=== PATIENT | male | born 1960 | race Caucasian/White ===

== ENCOUNTER → 2016-07-22 | Outpatient (CLI) | payer MEDICARE | LOC: RAD 09:41 | PROVIDERS: ATTEND Internal Medicine | DX: C20 Malignant neoplasm of rectum (principal) | CPT/HCPCS: 71260; 74177 ==

== ENCOUNTER 2017-04-21 15:26 | Day surgery (SDC) | payer MEDICARE ==
[2017-04-21] MEDS ORDERED: NALOXONE HCL INJ/PF 0.4 MG/1 ML SDV ONE (16:43)
[2017-04-21] MEDS ORDERED: EPINEPHRINE INJ 1 MG/10 ML DISP.SYRIN ONE (16:44)
[2017-04-21] MEDS ORDERED: FENTANYL CITRATE INJ/PF 100 MCG/2 ML AMPUL ONE (16:44)
[2017-04-21] MEDS ORDERED: MIDAZOLAM 2 MG/2 ML INJ ONE ×2 (16:44→16:51)
[2017-04-21] MEDS ORDERED: GLUCAGON,HUMAN RECOMB 1 MG INJ ONE ×2 (16:44→16:52)
[2017-04-21] MEDS ORDERED: FLUMAZENIL INJ 0.5 MG/5 ML VIAL ONE (16:44)
--- NOTE | 2017-04-21 18:28 | Operative Report ---
Operative Report DATE OF SURGERY: 04/21/17 Operative Report: Pre-op diagnosis: History of rectal cancer status post APR Post-op diagnosis: Sigmoid polyp Surgery: Colonoscopy through the stoma with biopsy Medications: Versed 3mg, Fentanyl 100mcg IV push Tissue removed: Colon polyp for pathology Procedure: After informed consent obtained from patient, conscious sedation was achieved. The colonoscope was then inserted into the colostomy stoma and advanced to the cecum. The appendiceal orifice and the terminal ileum were both identified. The mucosa was examined into details as the colonoscope was slowly pulled out of the patient. Patient tolerated the procedure well. Findings Cecum: Normal Ascending colon: Normal Transverse colon: Normal Descending colon: Normal Sigmoid colon: Proximal sigmoid showed a small polyp removed with a forceps Rectum: No rectum Plan: Repeat colonoscopy in 1-2 years OPERATION: .
[2017-04-21 19:24] VITALS: BP 132/80
== END 2017-04-21 19:20 | disposition home or self-care (01) ==
LOC: END 15:26
PROVIDERS: ATTEND Internal Medicine Gastroenterology
PROC: 0DBN8ZX Excision of Sigmoid Colon, Via Natural or Artificial Opening Endoscopic, Diagnostic (ICD-10-PCS; principal; 2017-04-21 17:43)
DX: Z12.11 Encounter for screening for malignant neoplasm of colon (principal); D12.5 Benign neoplasm of sigmoid colon; Z85.038 Personal history of other malignant neoplasm of large intestine; Z90.49 Acquired absence of other specified parts of digestive tract
CPT/HCPCS: 44389; 88305 ×2; J2250; J3010; J0171; J1610; J2310; J3490

== ENCOUNTER → 2017-04-27 | Outpatient (CLI) | payer MEDICARE, OTHER ==
--- NOTE | 2017-04-27 15:33 | RADIOLOGY REPORT (SQ) ---
EXAM DESCRIPTION: CT CHEST WITH COMPLETED DATE/TIME: 04/27/2017 9:05 am REASON FOR STUDY: RECTAL CA (C20) C20 MALIGNANT NEOPLASM OF RECTUM COMPARISON: 07/22/2016, 03/12/2016, and 04/20/2015. TECHNIQUE: CT scan of the chest performed using helical scanning technique with dynamic intravenous contrast injection. Images reviewed with lung, soft tissue and bone windows. Reconstructed coronal and sagittal MPR images reviewed. All images stored on PACS. All CT scanners at this facility use dose modulation, iterative reconstruction, and/or weight based d osing when appropriate to reduce radiation dose to as low as reasonably achievable (ALARA). [facility]: Dose Right [facility]: CareDose [facility]: Dose Right [facility]: Teradose 4D [facility]: [employer] CONTRAST TYPE AND DOSE: contrast/concentration: Isovue 370.00 mg/ml; Total Contrast Delivered: 71.0 ml; Total Saline Delivered: 66.0 ml RENAL FUNCTION: Creatinine 1.0. RADIATION DOSE: . LIMITATIONS: None. FINDINGS: LUNGS AND PLEURA: Emphysematous changes. New spiculated lesion in the right upper lobe me asuring 7 - 8 mm (series 6, image 33). No other nodules or masses. Small calcified granuloma in the left lung. No pneumothorax. No effusions. HILAR AND MEDIASTINAL STRUCTURES: No identified masses or abnormal nodes. HEART AND VASCULAR STRUCTURES: No aneurysm or dissection. No central pulmonary emboli. No pericardi al effusion. HARDWARE: None in the chest. UPPER ABDOMEN: No significant findings. Limited exam. THYROID AND OTHER SOFT TISSUES: No masses. No adenopathy. BONES: No significant finding. OTHER: No other significant finding. IMPRESSION: CHRONIC EMPHYSEMATOUS CHANGES. NEW 7-8 MM SPICULATED LESION IN THE RIGHT UPPER LOBE. I N THE SETTING OF UNDERLYING CHRONIC LUNG DISEASE, THIS COULD REPRESENT AN AREA OF DEVELOPING SCAR. H OWEVER, WITH THE HISTORY OF PRIOR MALIGNANCY, A SMALL METASTATIC LESION IS ANOTHER POSSIBILITY. ALEX MMEND FOLLOW-UP PET-CT FOR FURTHER EVALUATION. TECHNICAL DOCUMENTATION: JOB ID: [id number] Quality ID # [id number]: Final reports with documentation of one or more dose reduction techniques (e.g., Au tomated exposure control, adjustment of the mA and/or kV according to patient size, use of iterative reconstruction technique) 2010 [employer]- All Rights Reserved
--- NOTE | 2017-04-27 15:40 | RADIOLOGY REPORT (SQ) ---
EXAM DESCRIPTION: CT ABD/PELVIS WITH IV ORAL COMPLETED DATE/TIME: 04/27/2017 9:08 am REASON FOR STUDY: RECTAL CA (C20) C20 MALIGNANT NEOPLASM OF RECTUM COMPARISON: 07/22/2016, 03/12/2016, and 11/28/2015. TECHNIQUE: CT scan of the abdomen and pelvis performed with intravenous and oral contrast using soraya evelia scanning technique with dynamic intravenous contrast injection. Images reviewed with lung, soft t issue, and bone windows. Reconstructed coronal and sagittal MPR images reviewed. Delayed images for e valuation of the urinary system also acquired. All images stored on PACS. All CT scanners at this facility use dose modulation, iterative reconstruction, and/or weight based d osing when appropriate to reduce radiation dose to as low as reasonably achievable (ALARA). [facility]: Dose Right [facility]: CareDose [facility]: Dose Right [facility]: Teradose 4D [facility]: [employer] CONTRAST TYPE AND DOSE: 71 mL Isovue 370- low osmolar. RENAL FUNCTION: Creatinine 1.0. RADIATION DOSE: CT Rad equipment meets quality standard of care and radiation dose reduction techniq ues were employed. CTDIvol: 4.5 - 4.9 mGy. DLP: 662 mGy-cm.. LIMITATIONS: None. FINDINGS: LOWER CHEST: No significant findings. No nodules or infiltrates. LIVER: Normal size. No masses. No dilated ducts. SPLEEN: Normal size. No focal lesions. PANCREAS: No masses. No significant calcifications. No adjacent inflammation or peripancreatic fluid collections. Pancreatic duct not dilated. GALLBLADDER: No identified stones by CT criteria. No inflammatory changes to suggest cholecystitis. ADRENAL GLANDS: No significant masses or asymmetry. RIGHT KIDNEY AND URETER: No solid masses. No significant calcification. No hydronephrosis or hydroure ter. LEFT KIDNEY AND URETER: No solid masses. No significant calcification. No hydronephrosis or hydrouret er. AORTA AND VESSELS: No aneurysm. No dissection. Renal arteries, SMA, celiac without stenosis. RETROPERITONEUM: No retroperitoneal adenopathy, hemorrhage or masses. BOWEL AND PERITONEAL CAVITY: Stable surgical changes. Previous resection of the rectosigmoid with le ft lower quadrant diverting colostomy. No obstruction. No visualized masses. No free fluid. No infl ammatory changes or thickening of bowel wall. APPENDIX: Normal. PELVIS: No significant masses. A few loops of small bowel have prolapse into the surgical site in th e rectum. Normal bladder. No free fluid. ABDOMINAL WALL: No masses. No hernias. BONES: No significant or acute findings. OTHER: No other significant finding. IMPRESSION: STABLE SURGICAL CHANGES. NO EVIDENCE OF RESIDUAL OR RECURRENT DISEASE IN THE SURGICAL S ITE AND NO EVIDENCE OF METASTATIC DISEASE IN THE ABDOMEN OR PELVIS. NO OTHER SIGNIFICANT FINDINGS. TECHNICAL DOCUMENTATION: JOB ID: [id number] Quality ID # [id number]: Final reports with documentation of one or more dose reduction techniques (e.g., Au tomated exposure control, adjustment of the mA and/or kV according to patient size, use of iterative reconstruction technique) 2010 [employer]- All Rights Reserved
== END ==
LOC: RAD 08:25
PROVIDERS: ATTEND Internal Medicine
DX: C20 Malignant neoplasm of rectum (principal); J43.9 Emphysema, unspecified
CPT/HCPCS: 71260; 74177; 82565

== ENCOUNTER → 2017-07-28 | Outpatient (CLI) | payer MEDICARE, OTHER ==
--- NOTE | 2017-07-28 09:31 | RADIOLOGY REPORT (SQ) ---
EXAM DESCRIPTION: CT CHEST WITHOUT COMPLETED DATE/TIME: 07/28/2017 7:53 am REASON FOR STUDY: RECTAL CANCER C20 MALIGNANT NEOPLASM OF RECTUM COMPARISON: PET-CT 12/09/2015 CT chest 03/12/2016, 07/22/2016, 04/27/2017 TECHNIQUE: CT scan performed of the chest without intravenous contrast. Images reviewed with lung, soft tissue and bone windows. Reconstructed coronal and sagittal MPR images reviewed. All images st ored on PACS. All CT scanners at this facility use dose modulation, iterative reconstruction, and/or weight based d osing when appropriate to reduce radiation dose to as low as reasonably achievable (ALARA). [facility]: Dose Right [facility]: CareDose [facility]: Dose Right [facility]: Teradose 4D [facility]: [employer] RADIATION DOSE: 8 mGy. LIMITATIONS: No technical limitations. FINDINGS: LUNGS AND PLEURA: End-stage appearance of obstructive lung disease with enlarged centrilob ular airspaces. On axial image 39, there is a 5 to 6 mm spiculated nodule in the upper lobe. This is slightly smalle r than on 04/27/2017 but new compared to 07/22/2016. No pleural effusions. No pneumothorax. Airways are patent. HILAR AND MEDIASTINAL STRUCTURES: No identified masses or abnormal nodes. No obvious aneurysm. HEART AND VASCULAR STRUCTURES: Normal cardiac size. Stable ascending aorta ectasia compared to 2016, on the current study the ascending aorta is 3.8 cm. No pericardial effusion. UPPER ABDOMEN: No significant findings. Limited exam. THYROID AND OTHER SOFT TISSUES: No masses. No adenopathy. BONES: No significant finding. HARDWARE: None in the chest. OTHER: No other significant findings. IMPRESSION: Slight decrease in size of subcentimeter spiculated nodule in the right upper lobe axial image 39. Advanced obstructive lung disease. TECHNICAL DOCUMENTATION: JOB ID: [id number] Quality ID # 436: Final reports with documentation of one or more dose reduction techniques (e.g., Au tomated exposure control, adjustment of the mA and/or kV according to patient size, use of iterative reconstruction technique) 2010 [employer]- All Rights Reserved Reading location - IP/workstation name: [email or web address]
== END ==
LOC: RAD 07:42
PROVIDERS: ATTEND Internal Medicine
DX: C20 Malignant neoplasm of rectum (principal)
CPT/HCPCS: 71250

== ENCOUNTER → 2018-01-28 | Outpatient (CLI) | payer MEDICARE ==
--- NOTE | 2018-01-28 09:22 | RADIOLOGY REPORT (SQ) ---
EXAM DESCRIPTION: CT CHEST WITHOUT COMPLETED DATE/TIME: 01/28/2018 8:20 am REASON FOR STUDY: RECTAL CA (C20) C20 MALIGNANT NEOPLASM OF RECTUM COMPARISON: PET-CT 12/09/2015 CT chest 04/20/2015, 07/22/2016, 04/27/2017, 07/28/2017 TECHNIQUE: CT scan performed of the chest without intravenous contrast. Images reviewed with lung, soft tissue and bone windows. Reconstructed coronal and sagittal MPR images reviewed. All images st ored on PACS. All CT scanners at this facility use dose modulation, iterative reconstruction, and/or weight based d osing when appropriate to reduce radiation dose to as low as reasonably achievable (ALARA). [facility]: Dose Right [facility]: CareDose [facility]: Dose Right [facility]: Teradose 4D [facility]: [employer] RADIATION DOSE: CT Rad equipment meets quality standard of care and radiation dose reduction techniq ues were employed. CTDIvol: 5.1 mGy. DLP: 252 mGy-cm. mGy. LIMITATIONS: No technical limitations. FINDINGS: LUNGS AND PLEURA: Subcentimeter scar in the periphery of the right upper lobe axial images 37 and 38. This is smaller than on 04/27/2017 and stable compared to 07/28/2017. Remainder of the lungs exhibit advanced obstructive lung disease with centrilobular emphysema and sta ble bandlike scarring superior segment right lower lobe. No acute infiltrates. No pleural effusion. No pneumothorax. No worrisome pulmonary nodules. HILAR AND MEDIASTINAL STRUCTURES: No identified masses or abnormal nodes. No obvious aneurysm. HEART AND VASCULAR STRUCTURES: No aneurysm. No pericardial effusion. UPPER ABDOMEN: No significant findings. Limited exam. THYROID AND OTHER SOFT TISSUES: No masses. No adenopathy. BONES: No significant finding. HARDWARE: None in the chest. OTHER: No other significant findings. IMPRESSION: Obstructive lung disease. Stable subcentimeter scar in the periphery of the right upper lobe. TECHNICAL DOCUMENTATION: JOB ID: [id number] Quality ID # 436: Final reports with documentation of one or more dose reduction techniques (e.g., Au tomated exposure control, adjustment of the mA and/or kV according to patient size, use of iterative reconstruction technique) 2010 [employer]- All Rights Reserved Reading location - IP/workstation name: [email or web address]
== END ==
LOC: RAD 08:07
PROVIDERS: ATTEND Internal Medicine
DX: C20 Malignant neoplasm of rectum (principal)
CPT/HCPCS: 71250

== ENCOUNTER 2018-07-20 15:32 | Day surgery (SDC) | payer MEDICARE ==
[~2018-07-20 15:32] MED LIST: DIPHENHYDRAMINE HCL 50 MG/ML VIAL ONE; EPINEPHRINE INJ 1 MG/10 ML DISP.SYRIN ONE; FENTANYL CITRATE INJ/PF 100 MCG/2 ML AMPUL ONE; FLUMAZENIL INJ 0.5 MG/5 ML VIAL ONE; GLUCAGON,HUMAN RECOMB 1 MG INJ ONE; MIDAZOLAM 2 MG/2 ML INJ ONE; NALOXONE HCL INJ/PF 0.4 MG/1 ML SDV ONE; ONDANSETRON HCL INJ/PF 4 MG/2 ML SDV ONE
--- NOTE | 2018-07-20 17:00 | Operative Report ---
Operative Report DATE OF SURGERY: 07/20/18 Operative Report: Pre-op diagnosis: History of rectal cancer status post APR with permanent colostomy Post-op diagnosis: Transverse colon polyp Surgery: Colonoscopy through the stoma with polypectomy Medications: Versed 2mg, Fentanyl 100mcg IV push Tissue removed: Colon polyp Procedure: After informed consent obtained from patient, conscious sedation was achieved. Patient was left in the supine position and the colonoscope was inserted into a left-sided stoma and advanced to the cecum. The appendiceal orifice and the terminal ileum were both identified. The mucosa was examined into details as the colonoscope was slowly pulled out of the patient. The endoscope was retroflexed in the rectum. Patient tolerated the procedure well. Findings Cecum: Normal Ascending colon: Normal Transverse colon: 4 mm polyp removed with the cold snare Descending colon: Normal Sigmoid colon: Normal Plan: Await pathology. Repeat colonoscopy in 3 years OPERATION: .
[2018-07-20 17:59] VITALS: BP 109/76
== END 2018-07-20 17:55 | disposition home or self-care (01) ==
LOC: END 15:32
PROVIDERS: ATTEND Internal Medicine Gastroenterology
DX: D12.3 Benign neoplasm of transverse colon (principal); Z85.048 Personal history of other malignant neoplasm of rectum, rectosigmoid junction, and anus; Z93.3 Colostomy status; J44.9 Chronic obstructive pulmonary disease, unspecified
CPT/HCPCS: 44394; 88305 ×2; J2250; J3010; J0171; J1200; J1610; J2310; J2405; J3490

== ENCOUNTER 2019-02-04 06:29 | Emergency (ER) | payer MEDICARE ==
[2019-02-04 06:37] VITALS: BP 138/83
[2019-02-04] MEDS ORDERED: KETOROLAC TROMETHAMINE 60 MG/2 ML SDV IM ONE (07:07)
--- NOTE | 2019-02-04 07:09 | ER Document Report ---
ED Medical Screen (RME) - General Chief Complaint: Low Back Pain Stated Complaint: LOWER BACK PAIN Time Seen by Provider: 02/04/19 07:01 Notes: 58-year-old male with chief complaint of worsening sharp back pain for the past several days, he states it "came out of nowhere", he states that feels like a "band across the lower back". He denies numbness, pain radiating into the legs, urinary symptoms, incontinence. Denies history of kidney stones. He does have a history of colon cancer status post partial colectomy, chemo, radiation in 2017. He denies known history of metastasis. He denies history of IV drugs, denies fever. Denies any other complaints. TRAVEL OUTSIDE OF THE [place] IN LAST 30 DAYS: No - Related Data Allergies/Adverse Reactions: meperidine HCl [From Demerol] Adverse Reaction (Intermediate, Verified 02/04/19 06:35) VOMITING oxycodone Adverse Reaction (Intermediate, Verified 02/04/19 06:35) Nausea Oral Pain Medication Allergy (Severe, Uncoded 02/04/19 06:35) N/V Past Medical History - Past Medical History Cardiac Medical History: Denies: Hx Coronary Artery Disease, Hx Heart Attack, Hx Hypertension Pulmonary Medical History: Reports: Hx COPD, Hx Pneumonia Denies: Hx Asthma, Hx Bronchitis Neurological Medical History: Denies: Hx Cerebrovascular Accident, Hx Seizures Musculoskeltal Medical History: Denies Hx Arthritis - Immunizations Hx Diphtheria, Pertussis, Tetanus Vaccination: No Physical Exam - Vital signs Vitals: Temp Pulse Resp BP Pulse Ox 97.8 F 93 21 H 138/83 H 100 02/04/19 06:36 02/04/19 06:36 02/04/19 06:36 02/04/19 06:36 02/04/19 06:36 - Back Back: Tender - Seems tender over the general lumbar spine but this is not palpable with any particular rigid muscles. No saddle anesthesia, negative straight leg raises, no signs of trauma. Course - Re-evaluation Re-evalutation: I have greeted and performed a rapid initial assessment of this patient. A comprehensive ED assessment and evaluation of the patient, analysis of test results and completion of the medical decision making process will be conducted by additional ED providers. - Vital Signs Vital signs: Temp Pulse Resp BP Pulse Ox 97.8 F 93 21 H 138/83 H 100 02/04/19 06:36 02/04/19 06:36 02/04/19 06:36 02/04/19 06:36 02/04/19 06:36
[2019-02-04 07:23] LABS: APPEARANCE,URINE CLEAR; BILIRUBIN,URINE NEGATIVE (NEGATIVE); COLOR,URINE YELLOW; GLUCOSE, URINE NEGATIVE (NEGATIVE); KETONES,URINE TRACE mg/dL (NEGATIVE); LEUKOCYTE ESTERASE,URINE NEGATIVE (NEGATIVE); NITRITE,URINE NEGATIVE (NEGATIVE); PROTEIN,URINE NEGATIVE (NEGATIVE); URINE SPECIFIC GRAVITY 1.006; UROBILINOGEN,URINE NEGATIVE mg/dL (<2.0)
--- NOTE | 2019-02-04 08:23 | RADIOLOGY REPORT (SQ) ---
EXAM DESCRIPTION: CT LUMBAR SPINE WITHOUT COMPLETED DATE/TIME: 02/04/2019 7:42 am REASON FOR STUDY: sharp back pain, hx cancer COMPARISON: None. TECHNIQUE: Axial images acquired through the lumbar spine without intravenous contrast. Images revi ewed with lung, soft tissue and bone windows. Reconstructed coronal and sagittal MPR images reviewed . All images stored on PACS. All CT scanners at this facility use dose modulation, iterative reconstruction, and/or weight based d osing when appropriate to reduce radiation dose to as low as reasonably achievable (ALARA). [facility]: Dose Right [facility]: CareDose [facility]: Dose Right [facility]: Teradose 4D [facility]: [employer] RADIATION DOSE: 520 mGy cm LIMITATIONS: None. FINDINGS: SEGMENTATION: Normal. No transitional anatomy. ALIGNMENT: Normal. VERTEBRAL BODIES: No fractures. No dislocation. No acute findings. DISCS: Small multilevel broad-based central posterior disc bulges. Study limited by lack of intrathe evelia contrast. PEDICLES, TRANSVERSE PROCESSES: No fractures. No dislocation. No acute findings. FACETS, POSTERIOR ELEMENTS: No fractures. No dislocation. No spinal stenosis. HARDWARE: None in the spine. VISUALIZED RIBS: No fractures. SOFT TISSUES: Calcific atherosclerosis of the abdominal aorta and iliac branch vessels. OTHER: No other significant finding. IMPRESSION: No fracture or dislocation of the lumbar spine. Generally mild multilevel disc degenera tive disease, better evaluated by MRI, particularly in the setting of known malignancy. TECHNICAL DOCUMENTATION: JOB ID: [id number] Quality ID # [id number]: Final reports with documentation of one or more dose reduction techniques (e.g., Au tomated exposure control, adjustment of the mA and/or kV according to patient size, use of iterative reconstruction technique) 2010 [employer]- All Rights Reserved Reading location - IP/workstation name: [email or web address]
--- NOTE | 2019-02-04 08:54 | ER Document Report ---
ED General - General Chief Complaint: Low Back Pain Stated Complaint: LOWER BACK PAIN Time Seen by Provider: 02/04/19 07:01 Primary Care Provider: ROSALIA NAVARRO MD [Primary Care Provider] - Follow up as needed Mode of Arrival: Ambulatory TRAVEL OUTSIDE OF THE [place] IN LAST 30 DAYS: No - HPI Notes: History of rectal cancer status post chemo and local radiation a few years ago prior to total resection at level of rectum with rectal closure and diversion to ostomy 2 years ago. He says he follows with his oncologist and has continued to have negative surveillance CT scans every 6 months. He presents today though ambulatory because of persistence of some generalized bilateral lower sacral pain that seems to be worse at night for the last 4 days. He denies any new pain or changes at his left lower quadrant ostomy site or any dark stools or bloody stools. He denies any decrease in p.o. intake or exacerbation by p.o. intake. He denies any saddle anesthesia or other lower extremity or other sensory changes or numbness. He says his overlying area of rectal closure/diversion always is a little swollen and he avoids sitting on it too long but he has no history of skin breakdown there. He denies any leg weakness or clumsiness or shooting pains or any pain in his lower extremities. He denies difficulty urinating. He denies any new trauma or other falls or fear of falling or being off balance. He denies any new chest pain or shortness of breath or upper respiratory symptoms or fevers. No new nausea or vomiting. He lives at home by himself has been on disability for a number of years it does not work but says he still gets up around the house has not had any decline in his functioning, only that it taking him some time to get up in the morning because of the lower back pain stiffness he says. It does not radiate anywhere or migrate. And he continues to have no scrotal or other genitourinary swelling or pain. Initially was given 30 of IV Toradol which he said his taken his pain down to a tolerable level since he has been in the ED initially. - Related Data Allergies/Adverse Reactions: meperidine HCl [From Demerol] Adverse Reaction (Intermediate, Verified 02/04/19 06:35) VOMITING oxycodone Adverse Reaction (Intermediate, Verified 02/04/19 06:35) Nausea Oral Pain Medication Allergy (Severe, Uncoded 02/04/19 06:35) N/V Past Medical History - Social History Smoking Status: Former Smoker Frequency of alcohol use: None Drug Abuse: None Lives with: Alone Family History: Reviewed & Not Pertinent Patient has suicidal ideation: No Patient has homicidal ideation: No - Past Medical History Cardiac Medical History: Denies: Hx Coronary Artery Disease, Hx Heart Attack, Hx Hypertension Pulmonary Medical History: Reports: Hx COPD, Hx Pneumonia Denies: Hx Asthma, Hx Bronchitis Neurological Medical History: Denies: Hx Cerebrovascular Accident, Hx Seizures Musculoskeletal Medical History: Denies Hx Arthritis - Immunizations Hx Diphtheria, Pertussis, Tetanus Vaccination: No Hx Pneumococcal Vaccination: 05/14/09 Review of Systems - Review of Systems Constitutional: denies: Chills, Diaphoresis, Fever, Malaise, Weakness, Weight gain, Weight loss, Recent illness EENT: denies: Eye pain, Eye discharge, Blurred vision, Double vision, Ear pain, Nose pain, Nose congestion, Throat pain, Difficulty swallowing, Throat swelling Cardiovascular: denies: Chest pain, Palpitations, Heart racing, Orthopnea, Dyspnea, Syncope, Dizziness, Lightheaded, Edema, Paroxysmal Nocturnal Dysp Respiratory: denies: Cough, Hurts to breathe, Hemoptysis, Short of breath, Sputum, Wheezing Gastrointestinal: denies: Abdomen distended, Abdominal pain, Diarrhea, Nausea, Vomiting, Constipation, Blood streaked bowels, Poor appetite, Poor fluid intake, Black stools Genitourinary: denies: Frequency, Flank pain, Hematuria, Incontinence, Urgency, Retention Male Genitourinary: No symptoms reported. denies: Testicular pain Musculoskeletal: See HPI, Back pain. denies: Joint pain, Muscle pain, Muscle stiffness, Neck pain, Deformity, Leg swelling, Ankle swelling Skin: denies: Change in color, Lesions, Lumps, Rash Hematologic/Lymphatic: denies: Easy bleeding, Easy bruising, Swollen glands Neurological/Psychological: denies: Confusion, Sensory change, Weakness, Gait changes, Loss of power, Paralysis, Lost consciousness, Headaches, Speech impairment, Numbness, Tingling Physical Exam - Vital signs Vitals: Temp Pulse Resp BP Pulse Ox 97.8 F 93 21 H 138/83 H 100 02/04/19 06:36 02/04/19 06:36 02/04/19 06:36 02/04/19 06:36 02/04/19 06:36 - Notes Notes: ___Gen:___Thin adult male looks older than stated age bearing weight standing up waiting for me when I enter room to examine him. VS wnl at time of triage and in my exam. NAD or inc WOB. +Alert, +interactive/cooperative. ___HEENT:___ NCAT. No gross ocular discharge, conjunctival injection/pallor, or sleral icterus. Ext ears w/o deformity/otorrhea. Nares patent w/o (bloody) discharge. No stridor. No difficulty phonating or controlling secretions. Mouth/oropharynx musosa is pink/moist w/o deformity/edema/lesions. Base of uvula/posterior oropharynx visible, symmetric-appearing w/o mass effect/shift. ___Neck:___ No apparent difficulty w/ FROM. No gross deformity, masses, or skin changes. No palpable masses or TMG or gross LAD in cervical/submental/post- auricular zones. ___Chest:___ No inc labor at rest or with ambulation while in the ED. Symmetric b/l chest rise w/ spontaneous respirations at rate WNL. On auscultation no gross WRR or focal findings. +symmetric full BS heard all post/lateral/ant lung romano. ___CV:___ All ext WWP, pulses symmetric RRR easily palpable and symmetric at distal UE/LE. No peripheral/truncal edema or color changes to suggest PVD. Quiet precordium w/o heaves/lifts. On auscultation no gross MRG. ___MSK:___On thorough examination of the spine no point tenderness step-off deformity or overlying skin changes at cervical thoracic lumbar or sacral spine no other pain with range of motion at hip bilaterally or more distal lower extre mity joints. No other gross joint or bony deformities. No apparent difficulty flexing at Shoulder, elbow, wrists. ___Abd:___ Benign exam. No distention/color changes/obvious masses. BS present on auscultation. Nontender to light/deep palpation in all 4 quadrants, no palpable masses or OMG. ___GU:___ No suprapubic distention or ttp. Clear urine per specimen container. No gross ttp or palpable masses at CVA or inguinal regions b/l. ___Skin:___ Midline old well healed surgical site over sacral region site of rectum closure/dIversion without skin breakdown and nontender, very minimal swelling and erythema patient continues to report is his baseline and is not tender but sensation to light touch is intact. No no other skin changes over back flank abdomen around stoma ___Neuro:___ Alert interactive, calm cooperative, FRITZ w/ intention. Ambulatory. Speech, language, comprehension WNL during my interview. No gross CN deficits. Strength symmetric 5/5 at hip flexors, quadriceps calf, biceps triceps shoulders. Sensation to light touch intact/in all sensory regions of the trunk including back as well as over sacral region and symmetric distal UE/LE. Balance/gait, fine repetitive movements w/ both hands and feet grossly intact w/o dysmetria/ataxia/tremor x4 ext. ___Psych:___ Behavior, speech (content/rate) appropriate. +Well-kempt. +Good hygiene. Not disheveled. Not anxious or reserved-appearing. Course - Re-evaluation Re-evalutation: 02/04/19 19:10 After initially assessing patient with a reassuring neurologic exam realize he did not have basic serum labs drawn which I would have liked to assure renal status as well as calcium level within normal limits and otherwise CBC was within normal limits. Patient unfortunately eloped prior to me being able to order these I did though get in touch with his oncologist who knows him and we discussed the fact that he had a negative read on his lumbar spine CT without contrast but that I was pending labs. Oncologist said please give him a call if anything new came up in the labs but that given no neuro deficits reassuring that there was no new bony or cortical invasion on CT. I discussed that did not appear to be an infectious process but that he did have some redness and swelling over the old surgical site over the sacral region oncologist said that may be his baseline. I discussed the plan that if the labs were concerning and he needed to follow-up for an oncologic standpoint I could let him know but otherwise the plan would be to follow-up with his primary care doctor since his pain was much better after Toradol. Before I was able to tell patient I had been able to reach his oncologist RN alerted me patient had reported he was sick of waiting and can call the oncologist himself". I therefore did not discuss specifics unable to talk to him about plan for continued pain control plan, that would like to check the above labs given his significant history of radiation and rectal cancer or discuss specific warning signs for which I would like him to seek medical attention more immediately if before his primary care appointment such as weakness sensory changes fevers chills sweats or severe pain that persists or other new difficulty in ability to maintain his usual functions and baseline. I callED home number listed the patient at 7 PM on the same day he was seen earlier in the ED to discuss these things and ensure patient was continuing to have tolerable pain control and understood follow-up for labs and reassessment. There was no answering machine and I let it ring for 10 X, called a second time and again let it ring for 5 times without answer. 02/04/19 19:29 - Vital Signs Vital signs: Temp Pulse Resp BP Pulse Ox 97.8 F 93 21 H 138/83 H 100 02/04/19 06:36 02/04/19 06:36 02/04/19 06:36 02/04/19 06:36 02/04/19 06:36 - Laboratory Laboratory results interpreted by me: 02/04/19 06:55 Urine Ketones TRACE H 02/04/19 18:47 Unfortunately patient did elope before I was able to order a complete metabolic panel CBC with differential, and calcium level. Did review his UA which was reassuring and within normal limits besides trace urine ketones. - Diagnostic Test Radiology reviewed: Reports reviewed Radiology results interpreted by me: 02/04/19 18:50 After patient eloped I did personally review the lumbar spine noncontrast CT and agree I do not see any cortical derangement or obvious lytic lesions on the study. I would have also like to have had extension of the study to the sacral region given his history of rectal cancer and pelvic radiation though did not find any point tenderness along the CT LS spine on my exam. Midline remote over sacral region surgical site of rectum DIversion to ostomy without skin breakdown and nontender, very minimal swelling and erythema patient continues to report is his baseline. Discharge - Discharge Clinical Impression: Subacute back pain, History of treatment for malignancy Condition: Fair Disposition: ELOPED Referrals: ROSALIA NAVARRO MD [Primary Care Provider] - Follow up as needed
== END 2019-02-04 10:51 | disposition left against medical advice (07) ==
LOC: ER 06:29
DX: M54.5 Low back pain (principal); R60.0 Localized edema; L53.9 Erythematous condition, unspecified; J44.9 Chronic obstructive pulmonary disease, unspecified; Z92.3 Personal history of irradiation; Z92.21 Personal history of antineoplastic chemotherapy; Z85.048 Personal history of other malignant neoplasm of rectum, rectosigmoid junction, and anus; Z90.49 Acquired absence of other specified parts of digestive tract; Z87.891 Personal history of nicotine dependence; Z88.6 Allergy status to analgesic agent; Z53.29 Procedure and treatment not carried out because of patient's decision for other reasons
CPT/HCPCS: 99281; 96372; 81001; 72131; J1885

== ENCOUNTER → 2019-03-17 | Outpatient (CLI) | payer MEDICARE, OTHER ==
--- NOTE | 2019-03-17 11:37 | RADIOLOGY REPORT (SQ) ---
EXAM DESCRIPTION: CT CHEST WITHOUT COMPLETED DATE/TIME: 03/17/2019 7:39 am REASON FOR STUDY: RECTAL CA (C20) C20 MALIGNANT NEOPLASM OF RECTUM COMPARISON: 01/28/2018 TECHNIQUE: CT scan performed of the chest without intravenous contrast. Images reviewed with lung, soft tissue and bone windows. Reconstructed coronal and sagittal MPR images reviewed. All images st ored on PACS. All CT scanners at this facility use dose modulation, iterative reconstruction, and/or weight based d osing when appropriate to reduce radiation dose to as low as reasonably achievable (ALARA). [facility]: Dose Right [facility]: CareDose [facility]: Dose Right [facility]: Teradose 4D [facility]: [employer] RADIATION DOSE: CT Rad equipment meets quality standard of care and radiation dose reduction techniq ues were employed. CTDIvol: 5.4 mGy. DLP: 247 mGy-cm. mGy. LIMITATIONS: No technical limitations. FINDINGS: LUNGS AND PLEURA: Stable emphysema. Stable areas of pleural based scarring in the upper l obes. No enlarging nodules or infiltrate. No effusions. HILAR AND MEDIASTINAL STRUCTURES: No identified masses or abnormal nodes. No obvious aneurysm. HEART AND VASCULAR STRUCTURES: No aneurysm. No pericardial effusion. UPPER ABDOMEN: No significant findings. Limited exam. THYROID AND OTHER SOFT TISSUES: No masses. No adenopathy. BONES: No significant finding. HARDWARE: None in the chest. OTHER: No other significant findings. IMPRESSION: Stable chest. TECHNICAL DOCUMENTATION: JOB ID: [id number] Quality ID # [id number]: Final reports with documentation of one or more dose reduction techniques (e.g., Au tomated exposure control, adjustment of the mA and/or kV according to patient size, use of iterative reconstruction technique) 2010 [employer]- All Rights Reserved Reading location - IP/workstation name: [email or web address]
== END ==
LOC: RAD 07:12
PROVIDERS: ATTEND Internal Medicine
DX: C20 Malignant neoplasm of rectum (principal); J43.9 Emphysema, unspecified
CPT/HCPCS: 71250

== ENCOUNTER → 2020-03-27 | Outpatient (CLI) | payer MEDICARE ==
--- NOTE | 2020-03-27 10:58 | RADIOLOGY REPORT (SQ) ---
EXAM DESCRIPTION: CT CHEST WITHOUT IMAGES COMPLETED DATE/TIME: 03/27/2020 8:28 am REASON FOR STUDY: RECTAL CANCER C20 MALIGNANT NEOPLASM OF RECTUM COMPARISON: 03/17/2019, 01/28/2018 TECHNIQUE: CT scan performed of the chest without intravenous contrast. Images reviewed with lung, soft tissue and bone windows. Reconstructed coronal and sagittal MPR images reviewed. All images st ored on PACS. All CT scanners at this facility use dose modulation, iterative reconstruction, and/or weight based d osing when appropriate to reduce radiation dose to as low as reasonably achievable (ALARA). [facility]: Dose Right [facility]: CareDose [facility]: Dose Right [facility]: Teradose 4D [facility]: [employer] RADIATION DOSE: CT Rad equipment meets quality standard of care and radiation dose reduction techniq ues were employed. CTDIvol: 8.7 mGy. DLP: 418 mGy-cm. mGy. LIMITATIONS: No technical limitations. FINDINGS: LUNGS AND PLEURA: Stable pulmonary exam demonstrating severe centrilobular emphysematous c hanges and right apical pleural/ parenchymal scarring. No focal consolidation, pleural effusion, or pneumothorax. HILAR AND MEDIASTINAL STRUCTURES: No masses or lymphadenopathy. Scattered mediastinal lymph nodes de monstrate long-standing stability in both size and distribution. Ectatic appearing thoracic aorta. HEART AND VASCULAR STRUCTURES: No pericardial effusion. UPPER ABDOMEN: No significant findings. Limited exam. THYROID AND OTHER SOFT TISSUES: No masses. No adenopathy. BONES: No significant finding. HARDWARE: None in the chest. OTHER: No other significant findings. IMPRESSION: Stable CT appearance of the chest demonstrating severe centrilobular emphysematous chavez es. No acute findings. TECHNICAL DOCUMENTATION: JOB ID: [id number] Quality ID # [id number]: Final reports with documentation of one or more dose reduction techniques (e.g., Au tomated exposure control, adjustment of the mA and/or kV according to patient size, use of iterative reconstruction technique) 2010 [employer]- All Rights Reserved Reading location - IP/workstation name: [email or web address]
== END ==
LOC: RAD 08:16
PROVIDERS: ATTEND Physician Assistant Medical
DX: C20 Malignant neoplasm of rectum (principal); J43.2 Centrilobular emphysema
CPT/HCPCS: 71250